=== PATIENT | male | born 1970 | race Caucasian/White ===

== ENCOUNTER 2018-04-10 12:24 | Emergency (ER) | payer BC ==
[~2018-04-10] VITALS: Ht 182.8 cm; Wt 111.1 kg
[~2018-04-10 12:24] MED LIST: PREDNISONE10 MG PO; VIBRAMYCIN100 MG PO
[2018-04-10 12:26] VITALS: BP 128/83
[2018-04-10] MEDS ORDERED: PERCOCET 7.5-31 EACH PO (12:27)
[2018-04-10] MEDS ORDERED: PRILOSEC20 M1 PO (12:27)
[2018-04-10] MEDS ORDERED: XANAX0.5 MG PO (12:28)
== END 2018-04-10 14:14 | disposition home or self-care (01) ==
LOC: ED 12:24
DX: S50.02XA Contusion of left elbow, initial encounter (principal); Z79.899 Other long term (current) drug therapy; V09.9XXA Pedestrian injured in unspecified transport accident, initial encounter; Y93.89 Activity, other specified; Y92.89 Other specified places as the place of occurrence of the external cause; Y99.8 Other external cause status

== ENCOUNTER → 2019-04-11 | Day surgery (SDC) | payer BC ==
[~2019-04-11] VITALS: Ht 182.8 cm; Wt 99.8 kg
[~2019-04-11] MED LIST changes: +MELOXICAM7.5 MG PO; +PERCOCET 7.5-31 EACH PO; +PRILOSEC20 M1 PO; +XANAX0.5 MG PO
[2019-04-11 08:18] VITALS: BP 141/87
[2019-04-11 09:32] VITALS: BP 115/75
[2019-04-11 09:45] VITALS: BP 131/72
[2019-04-11 09:57] VITALS: BP 127/88
== END | disposition home or self-care (01) ==
LOC: SDC 04-09 12:30
DX: K62.5 Hemorrhage of anus and rectum (principal); K64.8 Other hemorrhoids; F41.9 Anxiety disorder, unspecified; K21.9 Gastro-esophageal reflux disease without esophagitis; Z79.899 Other long term (current) drug therapy; Z98.890 Other specified postprocedural states; Z82.49 Family history of ischemic heart disease and other diseases of the circulatory system

== ENCOUNTER → 2019-05-02 | Outpatient (CLI) | payer BC ==
[2019-05-02 10:39] LABS: FREE T4 0.69 ng/dl (0.76-1.46)
[2019-05-02 10:45] LABS: THYROID STIM HORMONE (HS) 6.6 uIU/ml (0.358-4.75)
== END | disposition home or self-care (01) ==
LOC: LAB 09:42
PROVIDERS: Family Medicine
DX: E03.9 Hypothyroidism, unspecified (principal)

== ENCOUNTER → 2019-08-03 | Outpatient (CLI) | payer BC | END | disposition home or self-care (01) | LOC: RAD 10:17 | DX: M54.12 Radiculopathy, cervical region (principal); R29.898 Other symptoms and signs involving the musculoskeletal system ==

== ENCOUNTER → 2019-10-05 | Outpatient (CLI) | payer BC | END | disposition home or self-care (01) | LOC: LAB 07:25 | DX: E03.9 Hypothyroidism, unspecified (principal) ==

== ENCOUNTER → 2020-01-24 | Outpatient (CLI) | payer BC ==
[2020-01-24 09:57] LABS: BASO # 0.1 10*3/uL (0.0-0.1); BASO % 0.7 % (0.0-1.0); EOS # 0.3 10*3/uL (0.0-0.4); EOS % 3.4 % (1.0-4.0); HEMATOCRIT 45.7 % (42.0-52.0); LYMPH # 2.4 10*3/uL (1.3-4.4); LYMPH % 24.8 % (27.0-41.0); MEAN CELL VOLUME 93.3 fl (80.0-94.0); MEAN CORPUSCULAR HGB 30.8 pg (27.0-31.0); MEAN PLATELET VOLUME 9.9 fl (9.6-12.3); MONO % 10.9 % (3.0-9.0); NEUT # 5.7 10*3/uL (2.3-7.9); NEUT % 59.7 % (47.0-73.0); PLATELET COUNT AUTOMATED 254 10*3/uL (130-400); RED CELL DISTRI WIDTH 13.3 % (0-14.5); WHITE BLOOD COUNT 9.5 10*3/uL (4.8-10.8)
[2020-01-24 10:19] LABS: ALBUMIN 3.4 gm/dl (3.1-4.5); ALKALINE PHOSPHATASE 65 U/L (45-117); BUN 14 mg/dl (7-24); CHLORIDE 106 mmol/L (98-107); CREATININE 0.94 mg/dL (0.70-1.30); POTASSIUM 4.1 mmol/L (3.5-5.1); SGOT/AST 21 IU/L (3-35); SGPT/ALT 36 U/L (12-78); SODIUM 137 mmol/L (136-145); TOTAL PROTEIN 7.7 gm/dL (6.4-8.2)
== END | disposition home or self-care (01) ==
LOC: LAB 09:22
PROVIDERS: Family Medicine
DX: E03.9 Hypothyroidism, unspecified (principal); R53.83 Other fatigue

== ENCOUNTER → 2020-06-02 | Outpatient (CLI) | payer BC ==
[2020-06-02 09:33] LABS: CHOLESTEROL 145 mg/dL (<200); CPK 63 U/L (39-308); HDL CHOLESTEROL 73 mg/dl (40-60); LDL CHOLESTEROL 50 mg/dL (9-159); TRIGLYCERIDES 110 mg/dl (<150); VLDL CHOLESTEROL 22 mg/dL (6-40)
[2020-06-03 08:12] LABS: RHEUMATOID ARTHRITIS FACTOR <10.0 IU/mL (0.0-13.9)
[2020-06-04 01:08] LABS: CCP ANTIBODIES IGG/IGA 6 units (0-19)
== END | disposition home or self-care (01) ==
LOC: LAB 08:41
PROVIDERS: ATTEND Family Medicine
DX: E78.2 Mixed hyperlipidemia (principal); M13.0 Polyarthritis, unspecified

== ENCOUNTER → 2020-12-29 | Outpatient (CLI) | payer BC | END | disposition home or self-care (01) | LOC: RAD 08:59 | PROVIDERS: ATTEND Family Medicine | DX: S59.902A Unspecified injury of left elbow, initial encounter (principal); M25.522 Pain in left elbow; X58.XXXA Exposure to other specified factors, initial encounter; Y93.89 Activity, other specified; Y92.89 Other specified places as the place of occurrence of the external cause; Y99.8 Other external cause status ==

== ENCOUNTER → 2023-04-11 | Outpatient (CLI) | payer BC | END | disposition home or self-care (01) | LOC: LAB 14:19 | PROVIDERS: ATTEND Family Medicine | DX: M47.22 Other spondylosis with radiculopathy, cervical region (principal); E03.9 Hypothyroidism, unspecified; M50.11 Cervical disc disorder with radiculopathy, high cervical region; M48.02 Spinal stenosis, cervical region ==